=== PATIENT | female | born 1980 | race African-American/Black ===

== ENCOUNTER 2017-02-18 02:31 | Emergency (ER) | payer SELFPAY ==
[2017-02-18] MEDS ORDERED: Metoclopramide HCl 10 MG/2 ML VIAL ONE (02:46)
[2017-02-18] MEDS ORDERED: Sodium Chloride 0.9% 1,000 ML ONE (02:46)
[2017-02-18] MEDS ORDERED: diphenhydrAMINE HCl 50 MG/ML 1 ML VIAL ONE (02:46)
== END 2017-02-18 04:00 | disposition home or self-care (01) ==
LOC: NAV ERS 02:31
DX: R51 Headache (principal); J45.909 Unspecified asthma, uncomplicated; Z87.891 Personal history of nicotine dependence
CPT/HCPCS: 96361; 96374; 96375; J1200; J2765; J7050